=== PATIENT | female | born 1995 | race Caucasian/White ===

== ENCOUNTER 2020-07-13 21:23 | Emergency (ER) | payer SELFPAY ==
[~2020-07-13] VITALS: Ht 152.4 cm; Wt 55.5 kg
--- NOTE | 2020-07-13 21:40 | PHYS DOC ---
General Adult EDM: Chief Complaint: CHEST PAIN HPI: HPI: Patient is a 25 year old female who states she has a past medical history A. fib DVT RI x 2--who is currently on no medications presents with a chief complaint of chest pain. Patient states chest pain started prior to arrival located in the center of her chest with radiation to the left shoulder. Patient states she has associated cough without sputum production shortness of air and feels nauseous. Review of Systems: Review of Systems: Constitutional: Denies fever or chills. [] Eyes: Denies change in visual acuity. [] HENT: Denies nasal congestion or sore throat. [] Respiratory: Positive shortness of breath Cardiovascular: Positive chest pain GI: Denies abdominal pain, , vomiting, bloody stools or diarrhea. [Positive nausea] : Denies dysuria. [] Musculoskeletal: Denies back pain or joint pain. [] Integument: Denies rash. [] Neurologic: Denies headache, focal weakness or sensory changes. [] Endocrine: Denies polyuria or polydipsia. [] Lymphatic: Denies swollen glands. [] Psychiatric: Denies depression or anxiety. [] Heart Score: HEART Score for Chest Pain: HEART Score for Chest Pain Response (Comments) Value History Slighlty/Non-Suspicious 0 ECG Normal 0 Age < 45 0 Risk Factors 1 or 2 Risk Factors 1 Troponin < Normal Limit 0 Total 1 Risk Factors: Risk Factors: DM, Current or recent (<one month) smoker, HTN, HLP, family history of CAD, obesity. Risk Scores: Score 0 - 3: 2.5% MACE over next 6 weeks - Discharge Home Score 4 - 6: 20.3% MACE over next 6 weeks - Admit for Clinical Observation Score 7 - 10: 72.7% MACE over next 6 weeks - Early Invasive Strategies Physical Exam: PE: Constitutional: Well developed, well nourished, no acute distress, non-toxic appearance. [] HENT: Normocephalic, atraumatic, bilateral external ears normal, oropharynx moist, no oral exudates, nose normal. [] Eyes: PERRLA, EOMI, conjunctiva normal, no discharge. [] Neck: Normal range of motion, no tenderness, supple, no stridor. [] Cardiovascular:Heart rate regular rhythm, no murmur [] Lungs & Thorax: Bilateral breath sounds clear to auscultation [] Abdomen: Bowel sounds normal, soft, no tenderness, no masses, no pulsatile masses. [] Skin: Warm, dry, no erythema, no rash. [] Back: No tenderness, no CVA tenderness. [] Extremities: No tenderness, no cyanosis, no clubbing, ROM intact, no edema. [] Neurologic: Alert and oriented X 3, normal motor function, normal sensory function, no focal deficits noted. [] Psychologic: Affect normal, judgement normal, mood normal. [] EKG: EKG: EKG performed at 2128 heart rate 75 normal sinus rhythm no acute abnormalities [] Radiology/Procedures: Radiology/Procedures: [] Impression: FINDINGS:CHEST XRAY The cardiomediastinal silhouette and pulmonary vessels are within normal limits. The lung and pleural spaces are clear. IMPRESSION: No acute cardiopulmonary process. FINDINGS:ct CHEST The cardiomediastinal silhouette and pulmonary vessels are within normal limits. The lung and pleural spaces are clear. IMPRESSION: No acute cardiopulmonary process. Course & Med Decision Making: Course & Med Decision Making Pertinent Labs and Imaging studies reviewed. (See chart for details) [] Patient was evaluated for chief complaint. Work-up consisted of laboratory analysis radiologic imaging and EKG. EKG without acute ischemic changes. Troponin within normal limits D-dimer very slightly elevated. Chest x-ray within normal limits CT angio chest no acute abnormalities. Patient was treated with a GI cocktail. She was discharged home with instruction to follow-up with primary care physician. Ynes Disclaimer: Ynes Disclaimer: This electronic medical record was generated, in whole or in part, using a voice recognition dictation system. Departure Departure Impression: Primary Impression: Chest pain Disposition: 01 DC HOME SELF CARE/HOMELESS Condition: STABLE Patient Instructions: Chest Pain (Nonspecific) HUGH MARCELO DO Jul 13, 2020 21:40
[2020-07-13 21:41] LABS: BASO # 0.1 x10^3/uL (0.0-0.2); BASO % 1 % (0-3); EOS # 0.1 x10^3/uL (0.0-0.7); EOS % 2 % (0-3); HEMATOCRIT 42.6 % (36.0-47.0); LYMPH # 2.4 x10^3/uL (1.0-4.8); LYMPH % 27 % (24-48); MEAN CORPUSCULAR HEMOGLOBIN 32 pg (25-35); MEAN CORPUSCULAR HGB CONC 35 g/dL (31-37); MEAN CORPUSCULAR VOLUME 90 fL (79-100); MONO # 0.7 x10^3/uL (0.0-1.1); MONO % 8 % (0-9); NEUT # 5.6 x10^3/uL (1.8-7.7); NEUT % 63 % (31-73); PLATELET COUNT 185 x10^3/uL (140-400); RED BLOOD COUNT 4.72 x10^6/uL (3.50-5.40); RED CELL DISTRIBUTION WIDTH 12.7 % (11.5-14.5); WHITE BLOOD COUNT 8.9 x10^3/uL (4.0-11.0)
[2020-07-13 22:08] LABS: CALCIUM 8.7 mg/dL (8.5-10.1); CREATININE 1.1 mg/dL (0.6-1.0); GFR 59.6; POTASSIUM 3.8 mmol/L (3.5-5.1)
[2020-07-13 22:13] LABS: ALBUMIN 3.9 g/dL (3.4-5.0); ALBUMIN/GLOBULIN RATIO 1.2 (1.0-1.7); TOTAL BILIRUBIN 0.4 mg/dL (0.2-1.0); TOTAL PROTEIN 7.2 g/dL (6.4-8.2)
[2020-07-13 22:13] LABS: U PREG PATIENT NEGATIVE (NEG)
[2020-07-13] MEDS ORDERED: CONTRAST GIVEN. MC PRN (22:45)
--- NOTE | 2020-07-13 22:47 | RAD ---
Exam: Chest one view INDICATION: Chest pain TECHNIQUE: Frontal view of the chest Comparisons: None FINDINGS: The cardiomediastinal silhouette and pulmonary vessels are within normal limits. The lung and pleural spaces are clear. IMPRESSION: No acute cardiopulmonary process. Electronically signed by: Luz Maria Luo MD (07/13/2020 10:44 PM) [id number]
--- NOTE | 2020-07-13 22:54 | RAD ---
Exam: CT of chest with contrast INDICATION: Chest pain TECHNIQUE: Sequential axial images through the chest obtained following the administration of 100 mL of Isovue-370 IV contrast. Sagittal and coronal reformatted images were reconstructed from the axial data and reviewed. 3-D reformatted images were reconstructed from the axial data and reviewed. Comparisons: Chest x-ray same day FINDINGS: Visual is portions of the thyroid are unremarkable. No enlarged mediastinal lymph nodes are identified. Heart size is normal. No pericardial effusion. Thoracic aorta has a normal course and caliber. Pulmonary artery is not enlarged. No pulmonary embolus identified within the main, lobar or segmental pulmonary arteries. Airways are patent. No consolidation or pneumothorax. No suspicious lung nodules. No pleural effusion or thickening. Visualized upper abdomen is unremarkable. No suspicious osseous lesions or acute fractures. IMPRESSION: No pulmonary embolus identified within the main, lobar or segmental pulmonary arteries. Exposure: One or more of the following in the visualized dose reduction techniques were utilized for this examination: 1. Automated exposure control 2. Adjustment of the MA and/or KV according to patient size 3. Use of iterative of reconstructive technique Electronically signed by: Luz Maria Luo MD (07/13/2020 10:51 PM) [id number]
[2020-07-13] MEDS ORDERED: IOHEXOL 350 MG/ML 100 ML VIAL. IV ONE (23:00)
[2020-07-13 23:11] VITALS: BP 133/86
[2020-07-13] MEDS ORDERED: LIDO:MAALOX 1:1 20 ML SINGLE DOSE. PO PRN (23:15)
--- NOTE | 2020-07-14 17:13 | EKG ---
[facility] [address] [place] [address] Test Date: 2020-07-13 Test Time: 21:29:19 Pat Name: SON LAMBERT Department: Room: Gender: F Negative Developer: : 1995 Requested By: HUGH MARCELO Order Number: [id number] Reading MD: Measurements Intervals [place] Rate: 75 P: 56 CO: 144 QRS: 66 QRSD: 72 T: 28 QT: 346 QTc: 389 Interpretive Statements SINUS RHYTHM NORMAL ECG RI6.02 No previous ECG available for comparison
== END 2020-07-13 23:50 | disposition home or self-care (01) ==
LOC: ER 21:23
DX: R07.89 Other chest pain (principal); R05 Cough; I48.91 Unspecified atrial fibrillation; I25.2 Old myocardial infarction; Z86.718 Personal history of other venous thrombosis and embolism
CPT/HCPCS: 36415; 71045; 71275; 80053; 81025; 84484; 85025; 85379; 93005; 99285; Q9967